=== PATIENT | male | born 2000 | race Caucasian/White ===

== ENCOUNTER 2023-04-30 09:50 | Day surgery (SDC) | payer SELFPAY ==
[2023-04-30 10:06] VITALS: BP 120/79; PULSE 84; RESP 16; TEMP 36.4; O2SAT 97; BMI 22.8
[2023-04-30] MEDS: Lactated Ringers 1,000 ML 15 ML IV (10:10)
--- NOTE | 2023-04-30 10:26 | HP.PCM_ITS ---
History and Physical Date of Admission: 04/30/23 Intake Vital Signs 04/23/2313:12 Height 6 ft 2 in Weight: 183 lb 8 oz BMI 23.6 BP 137/90 H Blood Pressure Location Rt brachial Position Sitting Respiration 18 Intake Visit Reasons: ABNORMAL BOWL MOVEMENTS Chief Complaint: change in bowel habits [employer] Required: No Is patient in pain?: No Allergies No Known Allergies Allergy (Unverified 04/23/23 13:11) Medications omeprazole magnesium 20 mg tablet,delayed release (Prilosec OTC) 20 mg PO DAILY 04/23/23 [History Confirmed 04/23/23] [facility] Medical History (Updated 04/23/23 @ 15:[address] Francisco Sykes MD) Acid reflux Change in bowel habits Hemorrhoids Family History (Updated 04/23/23 @ 13:10 by Kathie Willoughby) Grandfather DiabetesMother Cancer skin Social History (Updated 04/23/23 @ 13:11 by Kathie Willoughby) Electronic Cigarette Use: with nicotine alcohol intake: current HPI HPI HPI: Patient is a 22-year-old male he reports he has been having gastritis pain in his upper abdomen and he has been having stool caliber changes with ribbonlike stools for about a year. He says these come and go. He denies blood or rectal pain. He says his only pain is around his umbilicus. Sometimes eating makes the pain worse sometimes it does not. He was started on a PPI about a week ago. ROS General General: No weight change, appetite, fatigue, colon cancer, breast cancer or weakness HEENT HEENT: No difficulty swallowing, eye injury, eye surgery, swollen glands or hoarseness Endo Endocrine: No thyroid disease, diabetes mellitus, thyroid cancer, Hair loss, heat intolerance or cold intolerance Skin Skin: No rash or changing moles Breast Breast: No left breast lump, right breast lump, nipple discharge, breast pain, abnormal mammogram, abnormal US or breast enlargement Musc Musculoskeletal: No back problems, arthritis, rheumatoid arthritis, gout or joint pain Cardio Cardiovascular: No murmur, pacemaker, heart disease, atrial fibrillation, high blood pressure, heart attack, heart stent, palpitations, shortness of breat with exertion or chest pain Psych Psychiatric: No depression, anxiety or hearing voices Resp Respiratory: No shortness of breath, No sleep apnea, No cough, No COPD, No asthma, No emphysema and No wheezing Gastro Gastrointestinal: Yes abdominal pain, No nausea or vomiting, Yes diarrhea, Yes constipation, Yes blood in stool, Yes acid reflux, Yes hemorrhoids, No ulcers, No gallbladder problem and Yes black,tarry stools Shaw Hematologic: No blood thinners, No blood disorders, No bleeding, No anemia and No blood clots Neuro Neurologic: No system reviewed and no additional complaints, except as documented, No as per HPI, No abnormal gait, No abnormal hearing, No abnormal movements, No abnormal speech, No behavioral changes, No burning sensations, No confusion, No convulsions, No disequilibrium, No dizziness, No localized weakness, No frequent falls, No headache(s), No lack of coordination, No loss of vision, No memory loss, No numbness, No other visual disturbances, No radicular pain, No restless legs, No sensory deficit, No syncope, No tingling, No tremor(s), No weakness and No other Exam Const General: cooperative Orientation: alert and oriented x3 HENMT Head: normal to inspection Neck Neck: normal visual inspection and full ROM Chest Chest palpation & inspection: normal inspection of the chest Resp Effort & Inspection: normal respiratory effort Auscultation: clear to auscultation bilaterally Cardio Rate: regular rate Rhythm: regular rhythm GI Inspection: non-distended Palpation: soft and nontender Skin General: no rashes or lesions noted Neuro General: patient alert and patient oriented x3 Extrem General: full ROM Psych Appearance: grossly normal Mental Status: mental status grossly normal Assessment and Plan Assessment and Plan (1) Change in bowel habits: Status: Acute (2) Acid reflux: Status: Acute Qualifiers: Esophagitis presence: esophagitis presence not specified Qualified Code(s): K21.9 - Gastro-esophageal reflux disease without esophagitis Orders: Orders Colonoscopy Today Plan Patient has been having stool caliber changes for about a year. He says that occasionally he has ribbonlike stools. He does not have a family history of colon cancer. He also notes that his dentist told him he has irritation in the back of his throat indicative of reflux. I will perform a colonoscopy to check for issues in his colon and at the same time we will perform an EGD to check for esophagitis or gastritis. I explained endoscopy in detail to the patient. I explained the risks including but not limited to stroke or heart attack with anesthesia, perforation of the GI tract, bleeding, infection. I explained that any of these could necessitate further emergency surgery. The patient understands and all questions were answered sufficiently. The patient wishes to proceed with procedure. Francisco Sykes MD Pager: [facility] [address] [place] [address], [address] [place] [address] Office: I have examined the patient and the H&P has been reviewed. There are no clinical changes since date of exam.
--- NOTE | 2023-04-30 10:56 | OP.EGD_ITS ---
Patient Name: Rowdy Arias Procedure Date: 04/30/2023 10:37 AM Date of : 2000 Age: 22 Procedure: Upper GI endoscopy Indications: Heartburn, Gastro-esophageal reflux disease Providers: Francisco Sykes MD Medicines: Monitored Anesthesia Care Patient Profile: This is a 22 year old male. Refer to note in patient chart for documentation of history and physical. Complications: No immediate complications. Procedure: Pre-Anesthesia Assessment: - Prior to the procedure, a History and Physical was performed, and patient medications and allergies were reviewed. The patient's tolerance of previous anesthesia was also reviewed. The risks and benefits of the procedure and the sedation options and risks were discussed with the patient. All questions were answered, and informed consent was obtained. Prior Anticoagulants: The patient has taken no anticoagulant or antiplatelet agents. After reviewing the risks and benefits, the patient was deemed in satisfactory condition to undergo the procedure. After obtaining informed consent, the endoscope was passed under direct vision. Throughout the procedure, the patient's blood pressure, pulse, and oxygen saturations were monitored continuously. The Colonoscope was introduced through the mouth, and advanced to the fourth part of duodenum. The upper GI endoscopy was accomplished without difficulty. The patient tolerated the procedure well. Scope In: 10:42:25 AM Scope Out: 10:44:44 AM Total Procedure Duration Time 0 hours 2 minutes 19 seconds Findings: The esophagus was normal. The stomach was normal. The examined duodenum was normal. Impression: - Normal esophagus. - Normal stomach. - Normal examined duodenum. - No specimens collected. Recommendation: - Discharge patient to home. - Resume previous diet. - Continue present medications. Procedure Code(s): --- Professional --- 31359, Esophagogastroduodenoscopy, flexible, transoral; diagnostic, including collection of specimen(s) by brushing or washing, when performed (separate procedure) Diagnosis Code(s): --- Professional --- R12, Heartburn K21.9, Gastro-esophageal reflux disease without esophagitis CPT copyright 2021 [employer]. All rights reserved. The codes documented in this report are preliminary and upon remote medical coder review may be revised to meet current compliance requirements. Francisco Sykes MD 04/30/2023 10:55:57 AM This report has been signed electronically. Number of Addenda: 0 Note Initiated On: 04/30/2023 10:37 AM
--- NOTE | 2023-04-30 10:57 | OP.COLON_ITS ---
Patient Name: Rowdy Arias Procedure Date: 04/30/2023 10:44 AM Date of : 2000 Age: 22 Procedure: Colonoscopy Indications: Change in stool caliber Providers: Francisco Sykes MD Medicines: Monitored Anesthesia Care Patient Profile: This is a 22 year old male. Refer to note in patient chart for documentation of history and physical. Last Colonoscopy: none. The patient's first colonoscopy is today. Complications: No immediate complications. Procedure: Pre-Anesthesia Assessment: - Prior to the procedure, a History and Physical was performed, and patient medications and allergies were reviewed. The patient's tolerance of previous anesthesia was also reviewed. The risks and benefits of the procedure and the sedation options and risks were discussed with the patient. All questions were answered, and informed consent was obtained. Prior Anticoagulants: The patient has taken no anticoagulant or antiplatelet agents. After reviewing the risks and benefits, the patient was deemed in satisfactory condition to undergo the procedure. After I obtained informed consent, the scope was passed under direct vision. Throughout the procedure, the patient's blood pressure, pulse, and oxygen saturations were monitored continuously. The Colonoscope was introduced through the anus and advanced to the cecum, identified by appendiceal orifice and ileocecal valve. The colonoscopy was performed without difficulty. The patient tolerated the procedure well. The quality of the bowel preparation was good. The ileocecal valve, appendiceal orifice, and rectum were photographed. Scope In: 10:45:36 AM Scope Withdrawal Time 0 hours 6 minutes 13 seconds Scope Out: 10:55:16 AM Total Procedure Duration Time 0 hours 9 minutes 40 seconds Findings: The entire examined colon appeared normal on direct and retroflexion views. Impression: - The entire examined colon is normal on direct and retroflexion views. - No specimens collected. Recommendation: - Discharge patient to home. - Resume previous diet. - Continue present medications. - Repeat colonoscopy at age 43 for screening purposes. Procedure Code(s): --- Professional --- 19977, Colonoscopy, flexible; diagnostic, including collection of specimen(s) by brushing or washing, when performed (separate procedure) Diagnosis Code(s): --- Professional --- R19.5, Other fecal abnormalities CPT copyright 2021 [employer]. All rights reserved. The codes documented in this report are preliminary and upon inside wirer review may be revised to meet current compliance requirements. Francisco Sykes MD 04/30/2023 10:57:11 AM This report has been signed electronically. Number of Addenda: 0 Note Initiated On: 04/30/2023 10:44 AM
[2023-04-30 11:00] VITALS: BP 120/79; BP 98/56; PULSE 67; RESP 14; TEMP 37.1; O2SAT 96
[2023-04-30 11:05] VITALS: BP 103/52; BP 120/79; PULSE 68; RESP 16; O2SAT 96
[2023-04-30 11:10] VITALS: BP 120/79; BP 89/51; PULSE 62; RESP 16; O2SAT 97
[2023-04-30 11:15] VITALS: BP 120/79; BP 90/54; PULSE 60; RESP 16; TEMP 36.6; O2SAT 97
[2023-04-30 11:32] VITALS: BP 120/79
== END 2023-04-30 11:49 | disposition home or self-care (01) ==
LOC: EN 09:53 → AC 09:55
PROVIDERS: PCP Family Medicine; Referring Provider Family Medicine; Visit Provider Surgery
PROC: 0DJD8ZZ Inspection of Lower Intestinal Tract, Via Natural or Artificial Opening Endoscopic (ICD-10-PCS; CPT 45378; principal; 2023-04-30 10:55)
DX: K21.9 Gastro-esophageal reflux disease without esophagitis (principal); F17.290 Nicotine dependence, other tobacco product, uncomplicated; R19.4 Change in bowel habit; Z79.899 Other long term (current) drug therapy
CPT/HCPCS: 45378; 43235; J7120; J2405